=== PATIENT | male | born 1975 | race Hispanic/Latino ===

== ENCOUNTER 2017-02-22 16:29 | Emergency (ER) | payer OTHER ==
[2017-02-22 17:03] LABS: Hematocrit 40.2 % (35.5-45.6); Hemoglobin 13.3 gm/dl (11.8-15.2); Mean Corpuscular HGB Conc 33 % (32-34); Mean Corpuscular Hemoglobin 27 pg (28-32); Mean Corpuscular Volume 82 fl (84-94); Platelet Count 458 K/mm3 (140-440); Red Blood Count 4.88 M/mm3 (3.65-5.03); Red Cell Distribution Width 14.9 % (13.2-15.2); White Blood Count 10.7 K/mm3 (4.5-11.0)
[2017-02-22 17:43] LABS: Anion Gap 25 mmol/L; BUN/Creatinine Ratio 34; Blood Urea Nitrogen 17 mg/dL (9-20); Calcium 9.3 mg/dL (8.4-10.2); Carbon Dioxide 18 mmol/L (22-30); Chloride 97.3 mmol/L (98-107); Glucose 100 mg/dL (75-100); Potassium 3.9 mmol/L (3.6-5.0); Sodium 136 mmol/L (137-145)
[2017-02-22 17:53] LABS: Blastocytes % (Manual) 0 %
[2017-02-22 17:56] LABS: Diff Status Complete; Ovalocytes Few; Platelet Estimate Appears Increased
[2017-02-22] MEDS ORDERED: XYLOCAINE 1% MPF 5 mL INFILTRATI ONE (22:10)
[2017-02-22] MEDS ORDERED: ZOFRAN IM ONE (22:10)
[2017-02-22] MEDS ORDERED: MORPHINE IM ONE (22:10)
[2017-02-22] MEDS ORDERED: ROCEPHIN IM ONE (22:10)
--- NOTE | 2017-02-22 22:15 | Emergency Department Report ---
- General Chief complaint: Skin/Abscess/Foreign Body Stated complaint: HEAD INFECTION Time Seen by Provider: 02/22/17 22:00 Source: patient Mode of arrival: Ambulatory Limitations: No Limitations - History of Present Illness Initial comments: Patient is 41 years old male with no significant past medical history came today for evaluation of occipital skin lesion for 2 weeks. Patient stated that he went to an ER 2 weeks ago and was diagnosed as shingles, he was given antiviral medicine but his symptoms is getting worse. Patient stated that he tried to daina it by himself and greenish discharge came out. Patient denied nausea vomiting. No fever. MD complaint: abscess/boil -: Gradual - Related Data Previous Rx's Medication Instructions Recorded Last Taken Type Ondansetron [Zofran Odt] 4 mg PO Q8HR PRN #14 tab.rapdis 02/22/17 Unknown Rx Sulfamethoxazole/Trimethoprim 1 each PO BID #20 tablet 02/22/17 Unknown Rx [Bactrim DS TAB] Oxycodone HCl 10 mg PO TID PRN #14 tablet 02/23/17 Unknown Rx Allergies Allergy/AdvReac Type Severity Reaction Status Date / Time No Known Allergies Allergy Unverified 02/22/17 16:37 Abscess Boil HPI - HPI Chief Complaint: Skin/Abscess/Foreign Body Stated Complaint: HEAD INFECTION Time Seen by Provider: 02/22/17 22:00 Home Medications: Previous Rx's Medication Instructions Recorded Last Taken Type Ondansetron [Zofran Odt] 4 mg PO Q8HR PRN #14 tab.rapdis 02/22/17 Unknown Rx Sulfamethoxazole/Trimethoprim 1 each PO BID #20 tablet 02/22/17 Unknown Rx [Bactrim DS TAB] Oxycodone HCl 10 mg PO TID PRN #14 tablet 02/23/17 Unknown Rx Allergies/Adverse Reactions: Allergies Allergy/AdvReac Type Severity Reaction Status Date / Time No Known Allergies Allergy Unverified 02/22/17 16:37 ED Review of Systems ROS: Stated complaint: HEAD INFECTION Other details as noted in HPI Comment: All other systems reviewed and negative Constitutional: denies: chills, fever Respiratory: denies: cough, orthopnea, shortness of breath, SOB with exertion Cardiovascular: denies: chest pain Gastrointestinal: denies: abdominal pain, nausea, vomiting, diarrhea Skin: lesions Neurological: denies: headache, weakness ED Past Medical Hx - Past Medical History Previous Medical History?: No - Surgical History Past Surgical History?: No - Social History Smoking Status: Never Smoker Substance Use Type: None - Medications Home Medications: Home Medications Medication Instructions Recorded Confirmed Last Taken Type Ondansetron [Zofran Odt] 4 mg PO Q8HR PRN #14 tab.rapdis 02/22/17 Unknown Rx Sulfamethoxazole/Trimethoprim 1 each PO BID #20 tablet 02/22/17 Unknown Rx [Bactrim DS TAB] Oxycodone HCl 10 mg PO TID PRN #14 tablet 02/23/17 Unknown Rx ED Physical Exam - General Limitations: No Limitations General appearance: alert, in no apparent distress - Head Head exam: Present: other (3 3 cm abscess, fluctuant with greenish discharge.) - Eye Eye exam: Present: normal appearance - ENT ENT exam: Present: normal exam - Neck Neck exam: Present: normal inspection, full ROM. Absent: tenderness - Respiratory Respiratory exam: Present: normal lung sounds bilaterally - Cardiovascular Cardiovascular Exam: Present: tachycardia - GI/Abdominal GI/Abdominal exam: Present: soft, normal bowel sounds. Absent: distended, tenderness, guarding, rebound, rigid, mass, bruit, pulsatile mass - Extremities Exam Extremities exam: Present: normal inspection - Neurological Exam Neurological exam: Present: alert, oriented X3, CN II-XII intact - Skin Skin exam: Present: warm, dry, other (33 cm occipital abscess with greenish discharge.) ED Course Vital Signs 02/22/17 02/22/17 02/22/17 16:33 16:38 21:33 Temperature 97.7 F Pulse Rate 105 H Respiratory 18 Rate Blood Pressure 148/109 136/90 Blood Pressure [Right] O2 Sat by Pulse 98 Oximetry 02/22/17 02/22/17 02/22/17 21:45 21:49 21:51 Temperature 98.3 F Pulse Rate 64 Respiratory 18 18 Rate Blood Pressure 136/90 Blood Pressure 136/90 [Right] O2 Sat by Pulse 92 99 99 Oximetry 02/22/17 02/22/17 02/22/17 22:00 22:15 22:30 Temperature Pulse Rate Respiratory Rate Blood Pressure 140/98 140/98 119/77 Blood Pressure [Right] O2 Sat by Pulse 93 94 97 Oximetry 02/22/17 22:44 Temperature Pulse Rate Respiratory 18 Rate Blood Pressure Blood Pressure [Right] O2 Sat by Pulse Oximetry - I & D Head Type of Procedure: Simple Blade Size: 11 I & D Procedure: betadine prep, sterile drapes applied, sterile dressing applied , gauze wick placed Progress: No complication. ED Medical Decision Making - Lab Data Result diagrams: 02/22/17 16:47 02/22/17 16:47 Critical care attestation.: If time is entered above; I have spent that time in minutes in the direct care of this critically ill patient, excluding procedure time. ED Disposition Clinical Impression: Abscess, scalp Disposition: DC-01 TO HOME OR SELFCARE Is pt being admited?: No Condition: Stable Instructions: Abscess (ED) Prescriptions: Ondansetron [Zofran Odt] 4 mg PO Q8HR PRN #14 tab.rapdis PRN Reason: Nausea And Vomiting Oxycodone HCl 10 mg PO TID PRN #14 tablet PRN Reason: Pain Sulfamethoxazole/Trimethoprim [Bactrim DS TAB] 1 each PO BID #20 tablet Referrals: PRIMARY CARE, [Primary Care Provider] - 3-5 Days
[2017-02-22] MEDS ORDERED: XYLOCAINE 1% 20 mL ONE (22:22)
[2017-02-22] MEDS ORDERED: NACL 0.9% 0 ML IR ONE (22:23)
[2017-02-22] MEDS ORDERED: TRIPLE ANTIBIOTIC TP ONE (22:45)
[2017-02-22] MEDS ORDERED: XYLOCAINE 1% 20 mL INFILTRATI ONE (22:46)
[2017-02-23] MEDS ORDERED: TRIPLE ANTIBIOTIC TP ONE (00:02)
[2017-02-23 00:18] VITALS: BP 119/77
== END 2017-02-23 00:42 | disposition home or self-care (01) ==
LOC: ED 16:29
DX: L02.811 Cutaneous abscess of head [any part, except face] (principal)
CPT/HCPCS: 10060; 36415; 80048; 82140; 85007; 85025; 96372; 99283; J0696; J2270; J2405; A6250